=== PATIENT | male | born 1955 | race Caucasian/White ===

== ENCOUNTER → 2016-09-27 | Outpatient (CLI) | payer BC ==
--- NOTE | 2016-09-27 14:11 | REP ---
CAROTID ULTRASOUND: Real-time ultrasound evaluation and duplex Doppler interrogation of the extracranial carotid vasculature is performed. There is mild plaquing and narrowing in both carotid bulbs extending into the internal and external carotid arteries. Luminal narrowing is less than 50%. There is no evidence of hemodynamically significant stenosis of either internal carotid artery. Normal flow velocities are seen. The vertebral arteries demonstrate normal direction of flow. RIGHT LEFT Peak systolic velocity ICA 43.8 cm/s 68.3 cm/s End diastolic velocity ICA 16.7 cm/s 27.5 cm/s Peak systolic velocity CCA 97.1 cm/s 109.5 cm/s Peak systolic velocity ECA 85.1 cm/s 130.8 cm/s ICA/CCA ratio 0.45 0.63 IMPRESSION: Bilateral luminal narrowing of the internal carotid arteries less than 50%. No evidence of hemodynamically significant stenosis. Signed by Matthew Mohan MD 09/27/2016 02:03 P
== END ==
LOC: M RAD 13:09
PROVIDERS: ATTEND Physician Assistant
DX: R09.89 Other specified symptoms and signs involving the circulatory and respiratory systems (principal)

== ENCOUNTER → 2018-01-30 | Outpatient (CLI) | payer BC ==
[2018-01-30 11:12] LABS: HEMATOCRIT 44.4 % (42.0-52.0); HEMOGLOBIN 14.9 g/dl (13.5-17.5); MEAN CORPUSCULAR HEMOGLOBIN 30.3 pg (27.0-33.0); MEAN CORPUSCULAR HGB CONC 33.6 g/dl (32.0-36.5); MEAN CORPUSCULAR VOLUME 90.4 fl (80.0-96.0); PLATELET COUNT, AUTOMATED 188 10^3/uL (150-450); RED BLOOD COUNT 4.91 10^6/uL (4.30-6.10); RED CELL DISTRIBUTION WIDTH 13.2 % (11.5-14.5); WHITE BLOOD COUNT 6.6 10^3/uL (4.0-10.0)
[2018-01-30 11:26] LABS: INR 1.01; PROTHROMBIN TIME 13.4 SECONDS (12.1-14.4)
[2018-01-30 11:34] LABS: ALBUMIN 3.8 GM/DL (3.2-5.2); ALBUMIN/GLOBULIN RATIO 1.31 (1.00-1.93); ALKALINE PHOSPHATASE 88 U/L (45-117); ALT/SGPT 34 U/L (12-78); ANION GAP 8 MEQ/L (8-16); AST/SGOT 21 U/L (7-37); BILIRUBIN,TOTAL 0.5 MG/DL (0.2-1.0); BLOOD UREA NITROGEN 13 MG/DL (7-18); CALCIUM LEVEL 8.6 MG/DL (8.8-10.2); CARBON DIOXIDE LEVEL 29 MEQ/L (21-32); CHLORIDE LEVEL 104 MEQ/L (98-107); CREATININE FOR GFR 0.66 MG/DL (0.70-1.30); GLOMERULAR FILTRATION RATE > 60.0 (>49); GLUCOSE, FASTING 202 MG/DL (70-100); POTASSIUM SERUM 4.8 MEQ/L (3.5-5.1); SODIUM LEVEL 141 MEQ/L (136-145); TOTAL PROTEIN 6.7 GM/DL (6.4-8.2)
[2018-01-30 11:37] LABS: ERYTHROCYTE SEDIMENTATION RATE 3 mm/hr (0-20)
== END ==
LOC: M ADMPAT 10:17
DX: M17.12 Unilateral primary osteoarthritis, left knee (principal)
CPT/HCPCS: 71046

== ENCOUNTER 2018-02-20 06:45 | Inpatient (IN) | payer BC ==
[2018-02-20] MEDS ORDERED: LIDOCAINE 1% MDV 20ML VIAL SQ (07:00)
[2018-02-20 07:18] LABS: GLUCOSE, FASTING 227 MG/DL (70-100)
[2018-02-20] MEDS ORDERED: LIDOCAINE 2% INJ 100 MG/5 ML SDV (FOR ANES.) As Ordered (07:19)
[2018-02-20] MEDS ORDERED: PROPOFOL 200 MG/20 ML VIAL As Ordered ×3 (07:19→10:33)
[2018-02-20] MEDS: ACETAMINOPHEN 500 MG TAB PO (07:30)
[2018-02-20] MEDS: LR 1,000 ML IV ×3 (07:30→11:30)
[2018-02-20] MEDS ORDERED: HumaLOG INSULIN (NovoLOG) PER UNIT As Ordered (07:51)
[2018-02-20] MEDS: HumaLOG INSULIN (NovoLOG) PER UNIT SC ×3 (08:00→21:09)
[2018-02-20] MEDS ORDERED: MIDAZOLAM INJ 2 MG/2 ML VIAL (J2250) As Ordered (08:20)
[2018-02-20] MEDS ORDERED: fentaNYL 100 MCG/2 ML INJECTION (J3010) As Ordered (08:20)
[2018-02-20] MEDS: fentaNYL 100 MCG/2 ML INJECTION (J3010) IV ×4 (08:33→08:50)
[2018-02-20] MEDS: MIDAZOLAM INJ 2 MG/2 ML VIAL (J2250) IV ×2 (08:34→08:50)
[2018-02-20] MEDS ORDERED: dexameTHASONE 10 MG/1 ML VIAL PRES.FREE (J1100) (09:36)
[2018-02-20] MEDS ORDERED: ROPIvacaine 0.5% 30 ML INJECTION (J2795 PER 1MG) (09:36)
[2018-02-20] MEDS ORDERED: LIDOCAINE 1% MDV 20ML VIAL (09:36)
[2018-02-20] MEDS: EPINEPHrine INJ 1 MG/ML 1ML AMP As Ordered (09:41)
[2018-02-20] MEDS: BUPIVACAINE HCL 0.25% 10 ML VIAL As Ordered (09:41)
[2018-02-20] MEDS: TRANEXAMIC ACID 100 MG/ML 10ML VIAL As Ordered (09:41)
[2018-02-20] MEDS: BUPIVACAINE LIPOSOME/PF 1.3% 20 ML VIAL (13.3MG/ML)(EXPAREL) As Ordered (09:41)
[2018-02-20] MEDS: ceFAZolin 1GM INJ (J0690 PER 500MG) As Ordered (09:42)
[2018-02-20] MEDS ORDERED: MORPHINE 1MG/ML IN 0.9% NACL 100ML IV BAG As Ordered (11:23)
[2018-02-20] MEDS ORDERED: NALOXONE INJ 0.4 MG/1 ML VIAL (J2310) IV (11:30)
[2018-02-20] MEDS ORDERED: FLEET ENEMA PR (11:30)
[2018-02-20] MEDS ORDERED: MORPHINE 1MG/ML IN 0.9% NACL 100ML IV BAG IV (11:30)
[2018-02-20] MEDS ORDERED: ACETAMINOPHEN TAB 650MG DOSE (2X325MG) PO (11:30)
[2018-02-20] MEDS ORDERED: MORPHINE 10 MG/ML 1ML VIAL (J2270) IV (11:30)
[2018-02-20] MEDS ORDERED: ONDANSETRON 4MG/2ML VIAL (J2405) IV ×2 (11:30)
[2018-02-20] MEDS ORDERED: EPIDURAL/PCA KEYS XX (11:30)
[2018-02-20] MEDS ORDERED: NALBUPHINE HCL 10 MG/ML AMP (J2300) IV (11:30)
[2018-02-20] MEDS ORDERED: diphenhydrAMINE INJ 50MG/ML VIAL (J1200) IV (11:30)
[2018-02-20] MEDS ORDERED: fentaNYL 100 MCG/2 ML INJECTION (J3010) IV (11:30)
[2018-02-20] MEDS ORDERED: GLUCOSE 4 GM CHEW TABLET PO (18:00)
[2018-02-20] MEDS ORDERED: GLUCAGON FOR INJ 1 MG VIAL (J1610) SC (18:00)
[2018-02-20] MEDS ORDERED: DEXTROSE 50% 50 ML SYRINGE IV (18:00)
[2018-02-20 21:09] LABS: BEDSIDE GLUCOSE 361 MG/DL (80-115)
[2018-02-20 21:09] LABS: BEDSIDE GLUCOSE 304 MG/DL (80-115)
[2018-02-20] MEDS: FAMOTIDINE 20 MG TAB PO (21:09)
[2018-02-21 07:00] LABS: HEMATOCRIT 41.7 % (42.0-52.0); MEAN CORPUSCULAR HEMOGLOBIN 30.4 pg (27.0-33.0); MEAN CORPUSCULAR HGB CONC 33.6 g/dl (32.0-36.5); MEAN CORPUSCULAR VOLUME 90.5 fl (80.0-96.0); PLATELET COUNT, AUTOMATED 217 10^3/uL (150-450); RED BLOOD COUNT 4.61 10^6/uL (4.30-6.10); RED CELL DISTRIBUTION WIDTH 13.3 % (11.5-14.5); WHITE BLOOD COUNT 15.9 10^3/uL (4.0-10.0)
[2018-02-21 07:18] LABS: INR 1.05; PROTHROMBIN TIME 13.8 SECONDS (12.1-14.4)
[2018-02-21 07:27] LABS: ANION GAP 9 MEQ/L (8-16); BLOOD UREA NITROGEN 22 MG/DL (7-18); CALCIUM LEVEL 8.1 MG/DL (8.8-10.2); CARBON DIOXIDE LEVEL 26 MEQ/L (21-32); CHLORIDE LEVEL 105 MEQ/L (98-107); GLOMERULAR FILTRATION RATE > 60.0 (>49); GLUCOSE, FASTING 205 MG/DL (70-100); POTASSIUM SERUM 4.3 MEQ/L (3.5-5.1); SODIUM LEVEL 140 MEQ/L (136-145)
[2018-02-21] MEDS ORDERED: ONDANSETRON 4 MG TAB (S0181) PO (08:00)
[2018-02-21] MEDS ORDERED: PERCOCET 5MG/325MG TAB PO (08:00)
[2018-02-21] MEDS: MIRALAX *UNIT DOSE* 17GM PACKET PO (08:39)
[2018-02-21] MEDS: ROSUVASTATIN 10 MG TAB (CRESTOR) PO (08:39)
[2018-02-21] MEDS: HumaLOG INSULIN (NovoLOG) PER UNIT SC ×2 (08:39→12:46)
[2018-02-21] MEDS: SENOKOT S TAB PO (08:39)
[2018-02-21] MEDS: MOM 30ML SUSPENSION UDC PO (08:39)
[2018-02-21] MEDS: RAMIPRIL 5 MG CAP PO (08:40)
[2018-02-21] MEDS: FAMOTIDINE 20 MG TAB PO (08:40)
[2018-02-21] MEDS: PERCOCET 5MG/325MG TAB PO ×3 (08:41→17:21)
[2018-02-22 03:28] LABS: BEDSIDE GLUCOSE 268 MG/DL (80-115)
[2018-02-22] MEDS ORDERED: CLOPIDOGREL 75 MG TAB PO (09:00)
[2018-02-22] MEDS ORDERED: ASPIRIN 81 MG ENTERIC TAB PO (09:00)
== END 2018-02-21 17:34 | disposition home or self-care (01) | DRG 302 ==
LOC: M OR 06:45 → M MS5PR 12:50
PROVIDERS: Orthopaedic Surgery
PROC: 0SRD0J9 Replacement of Left Knee Joint with Synthetic Substitute, Cemented, Open Approach (ICD-10-PCS; principal; 2018-02-20 08:53)
DX: M17.12 Unilateral primary osteoarthritis, left knee (principal); I10 Essential (primary) hypertension; E66.9 Obesity, unspecified; Z68.36 Body mass index [BMI] 36.0-36.9, adult; E11.9 Type 2 diabetes mellitus without complications; I25.10 Atherosclerotic heart disease of native coronary artery without angina pectoris; E78.5 Hyperlipidemia, unspecified; M81.0 Age-related osteoporosis without current pathological fracture; K21.9 Gastro-esophageal reflux disease without esophagitis; E78.00 Pure hypercholesterolemia, unspecified; Z88.8 Allergy status to other drugs, medicaments and biological substances; Z79.84 Long term (current) use of oral hypoglycemic drugs; Z79.82 Long term (current) use of aspirin; Z79.02 Long term (current) use of antithrombotics/antiplatelets; Z95.9 Presence of cardiac and vascular implant and graft, unspecified; Z87.891 Personal history of nicotine dependence; Z79.899 Other long term (current) drug therapy

== ENCOUNTER 2018-02-23 12:50 | Inpatient (IN) | payer BC ==
[2018-02-23 13:48] LABS: APPEARANCE, URINE CLEAR (CLEAR); BACTERIA, URINE AUTO NEGATIVE (NEGATIVE); BILIRUBIN, URINE AUTO NEGATIVE (NEGATIVE); BLOOD, URINE BLOOD 2+ (NEGATIVE); COLOR, URINE YELLOW (YELLOW); GLUCOSE, URINE (UA) AUTO 3+ mg/dL (NEGATIVE); KETONE, URINE AUTO 2+ mg/dL (NEGATIVE); LEUKOCYTE ESTERASE, URINE AUTO NEGATIVE (NEGATIVE); MUCUS, URINE SMALL (NEGATIVE); NITRITE, URINE AUTO NEGATIVE (NEGATIVE); PROTEIN, URINE AUTO 1+ mg/dL (NEGATIVE); RBC, URINE AUTO 10 /HPF (0-3); SPECIFIC GRAVITY URINE AUTO 1.022 (1.002-1.035); SQUAMOUS EPITHELIAL CELL UR AU 0 /HPF (0-6); UROBILINOGEN, URINE AUTO 0.2 mg/dL (0.0-2.0); WBC, URINE AUTO 1 /HPF (0-3)
[2018-02-23 15:49] LABS: BASO # 0.1 10^3/uL (0.0-0.2); BASO % 0.3 % (0.0-1.0); HEMATOCRIT 46.9 % (42.0-52.0); IMMATURE GRANULOCYTE % 1.7 % (0-3.0); LYMPH # 1.9 10^3/uL (1.5-4.5); MEAN CORPUSCULAR HEMOGLOBIN 30.1 pg (27.0-33.0); MEAN CORPUSCULAR VOLUME 94.2 fl (80.0-96.0); MONO # 1.2 10^3/uL (0.0-0.8); MONO % 7.2 % (0.0-5.0); NEUTROPHILS # 12.7 10^3/uL (1.8-7.7); NEUTROPHILS % 78.8 % (36.0-66.0); PLATELET COUNT, AUTOMATED 261 10^3/uL (150-450); RED BLOOD COUNT 4.98 10^6/uL (4.30-6.10); RED CELL DISTRIBUTION WIDTH 13.5 % (11.5-14.5); WHITE BLOOD COUNT 16.1 10^3/uL (4.0-10.0)
[2018-02-23] MEDS: NS 1,000 ML IV ×3 (15:50→22:29)
[2018-02-23 16:06] LABS: ERYTHROCYTE SEDIMENTATION RATE 4 mm/hr (0-20)
[2018-02-23 16:14] LABS: ALBUMIN 3.5 GM/DL (3.2-5.2); ALBUMIN/GLOBULIN RATIO 0.85 (1.00-1.93); ALKALINE PHOSPHATASE 76 U/L (45-117); ALT/SGPT 28 U/L (12-78); AMYLASE 18 U/L (25-115); ANION GAP 22 MEQ/L (8-16); AST/SGOT 17 U/L (7-37); BILIRUBIN,DIRECT 0.2 MG/DL (0.0-0.2); BILIRUBIN,TOTAL 0.8 MG/DL (0.2-1.0); BLOOD UREA NITROGEN 19 MG/DL (7-18); CALCIUM LEVEL 8.5 MG/DL (8.8-10.2); CARBON DIOXIDE LEVEL 9 MEQ/L (21-32); CHLORIDE LEVEL 104 MEQ/L (98-107); CPK CREATINE PHOSPHOKINASE 159 U/L (39-308); CREATININE FOR GFR 0.83 MG/DL (0.70-1.30); GLOMERULAR FILTRATION RATE > 60.0 (>49); GLUCOSE, FASTING 180 MG/DL (70-100); LIPASE 57 U/L (73-393); POTASSIUM SERUM 5.2 MEQ/L (3.5-5.1); SODIUM LEVEL 135 MEQ/L (136-145); TOTAL PROTEIN 7.6 GM/DL (6.4-8.2); TROPONIN I < 0.02 NG/ML (< 0.10)
[2018-02-23 16:15] LABS: CK-MB VALUE MASS 1.2 NG/ML (<3.6); MB/CK RELATIVE INDEX 0.75 (< OR =4)
[2018-02-23 16:53] LABS: BEDSIDE GLUCOSE 168 MG/DL (80-115)
[2018-02-23 17:06] LABS: VENOUS BASE EXCESS -19.9 (-2.0-2.0); VENOUS HCO3 9.2 MEQ/L (23.0-27.0); VENOUS O2 SATURATION 60.2 % (60.0-80.0); VENOUS PARTIAL PRESSURE CO2 32.2 mmHg (38.0-50.0); VENOUS PARTIAL PRESSURE O2 37.4 mmHg (30.0-50.0); VENOUS PH 7.072 UNITS (7.330-7.430); VENOUS STANDARD HCO3 9.6 MEQ/L; VENOUS TOTAL CO2 10.2 MEQ/L (24.0-28.0)
[2018-02-23 17:43] LABS: ACETONE/KETONE > 46.00 MG/DL (<2.81)
[2018-02-23 19:25] LABS: BEDSIDE GLUCOSE 172 MG/DL (80-115)
[2018-02-23] MEDS ORDERED: INSULIN HUMAN REGULAR 100 UNITS in NS 99 ML IV (19:35)
[2018-02-23] MEDS ORDERED: INSULIN IV RATE CHANGE DOCUMENTATION ML/HR XX (19:45)
[2018-02-23] MEDS ORDERED: ISOVUE-370 76% 100ML VIAL (Q9967) As Ordered (19:49)
[2018-02-23] MEDS: D5W/0.45% SODIUM CHLORIDE 1,000 ML IV (20:35)
[2018-02-23] MEDS: PIPERACILLIN/TAZOBACTAM SOD 3.375 GM in D5W MINI-BAG PLUS 50 ML IV (20:35)
[2018-02-23 20:41] LABS: ESTIMATED AVERAGE GLUCOSE 194 MG/DL (60-110); HEMOGLOBIN A1c 8.4 %
[2018-02-23 20:46] LABS: ANION GAP 16 MEQ/L (8-16); BLOOD UREA NITROGEN 18 MG/DL (7-18); CALCIUM LEVEL 7.9 MG/DL (8.8-10.2); CARBON DIOXIDE LEVEL 12 MEQ/L (21-32); CHLORIDE LEVEL 108 MEQ/L (98-107); CK-MB VALUE MASS < 1.0 NG/ML (<3.6); CPK CREATINE PHOSPHOKINASE 127 U/L (39-308); GLOMERULAR FILTRATION RATE > 60.0 (>49); GLUCOSE, FASTING 158 MG/DL (70-100); MAGNESIUM LEVEL 2.2 MG/DL (1.8-2.4); MB/CK RELATIVE INDEX 0.78 (< OR =4); PHOSPHORUS LEVEL 3.2 MG/DL (2.5-4.9); SODIUM LEVEL 136 MEQ/L (136-145); TROPONIN I < 0.02 NG/ML (< 0.10)
[2018-02-23] MEDS: NYSTATIN CREAM 15 GM TOP (21:00)
[2018-02-23 21:02] LABS: ACETONE/KETONE > 46.00 MG/DL (<2.81); POTASSIUM SERUM 5.4 MEQ/L (3.5-5.1)
[2018-02-23 21:12] LABS: BEDSIDE GLUCOSE 190 MG/DL (80-115)
[2018-02-23] MEDS: ROSUVASTATIN 10 MG TAB (CRESTOR) PO (21:17)
[2018-02-23] MEDS: FAMOTIDINE 20 MG TAB PO (21:17)
[2018-02-23] MEDS: VANCOMYCIN HCL 1,000 MG, VIAL MATE ADAPTER 1 EACH in D5W 250 ML IV ×2 (21:19→22:15)
[2018-02-23 22:13] LABS: BEDSIDE GLUCOSE 226 MG/DL (80-115)
[2018-02-23] MEDS: RAMIPRIL 5 MG CAP PO (23:00)
[2018-02-23] MEDS: PERCOCET 5MG/325MG TAB PO (23:00)
[2018-02-23 23:48] LABS: BEDSIDE GLUCOSE 233 MG/DL (80-115)
[2018-02-23] MEDS: HumaLOG INSULIN (NovoLOG) PER UNIT SC (23:49)
[2018-02-23 23:56] LABS: ANION GAP 20 MEQ/L (8-16); BLOOD UREA NITROGEN 17 MG/DL (7-18); CALCIUM LEVEL 8.1 MG/DL (8.8-10.2); CARBON DIOXIDE LEVEL 7 MEQ/L (21-32); CHLORIDE LEVEL 107 MEQ/L (98-107); CREATININE FOR GFR 0.82 MG/DL (0.70-1.30); GLOMERULAR FILTRATION RATE > 60.0 (>49); GLUCOSE, FASTING 221 MG/DL (70-100); MAGNESIUM LEVEL 2.2 MG/DL (1.8-2.4); POTASSIUM SERUM 4.4 MEQ/L (3.5-5.1); SODIUM LEVEL 134 MEQ/L (136-145)
[2018-02-24 00:10] LABS: ACETONE/KETONE > 46.00 MG/DL (<2.81)
[2018-02-24 01:53] LABS: BEDSIDE GLUCOSE 67 MG/DL (80-115)
[2018-02-24 01:55] LABS: BEDSIDE GLUCOSE 177 MG/DL (80-115)
[2018-02-24] MEDS: PIPERACILLIN/TAZOBACTAM SOD 3.375 GM in D5W MINI-BAG PLUS 50 ML IV ×4 (02:55→21:14)
[2018-02-24 03:27] LABS: HEMATOCRIT 41.4 % (42.0-52.0); HEMOGLOBIN 13.6 g/dl (13.5-17.5); MEAN CORPUSCULAR HEMOGLOBIN 30.3 pg (27.0-33.0); MEAN CORPUSCULAR HGB CONC 32.9 g/dl (32.0-36.5); MEAN CORPUSCULAR VOLUME 92.2 fl (80.0-96.0); PLATELET COUNT, AUTOMATED 245 10^3/uL (150-450); RED BLOOD COUNT 4.49 10^6/uL (4.30-6.10); RED CELL DISTRIBUTION WIDTH 13.5 % (11.5-14.5); WHITE BLOOD COUNT 13.2 10^3/uL (4.0-10.0)
[2018-02-24 03:48] LABS: BEDSIDE GLUCOSE 180 MG/DL (80-115)
[2018-02-24 04:09] LABS: ALBUMIN 2.8 GM/DL (3.2-5.2); ALBUMIN/GLOBULIN RATIO 0.65 (1.00-1.93); ALKALINE PHOSPHATASE 57 U/L (45-117); ALT/SGPT 19 U/L (12-78); ANION GAP 16 MEQ/L (8-16); AST/SGOT 11 U/L (7-37); BILIRUBIN,TOTAL 0.7 MG/DL (0.2-1.0); BLOOD UREA NITROGEN 18 MG/DL (7-18); CALCIUM LEVEL 7.9 MG/DL (8.8-10.2); CARBON DIOXIDE LEVEL 10 MEQ/L (21-32); CHLORIDE LEVEL 110 MEQ/L (98-107); CK-MB VALUE MASS 1.3 NG/ML (<3.6); CPK CREATINE PHOSPHOKINASE 91 U/L (39-308); CREATININE FOR GFR 0.78 MG/DL (0.70-1.30); GLOMERULAR FILTRATION RATE > 60.0 (>49); GLUCOSE, FASTING 168 MG/DL (70-100); MAGNESIUM LEVEL 2.3 MG/DL (1.8-2.4); MB/CK RELATIVE INDEX 1.42 (< OR =4); PHOSPHORUS LEVEL 2.6 MG/DL (2.5-4.9); POTASSIUM SERUM 4.2 MEQ/L (3.5-5.1); SODIUM LEVEL 136 MEQ/L (136-145); TOTAL PROTEIN 7.1 GM/DL (6.4-8.2); TROPONIN I < 0.02 NG/ML (< 0.10)
[2018-02-24 04:25] LABS: ACETONE/KETONE 39.66 MG/DL (<2.81)
[2018-02-24] MEDS: VANCOMYCIN HCL 1,000 MG, VIAL MATE ADAPTER 1 EACH in D5W 250 ML IV ×3 (05:27→22:28)
[2018-02-24 05:54] LABS: BEDSIDE GLUCOSE 188 MG/DL (80-115)
[2018-02-24] MEDS: HumaLOG INSULIN (NovoLOG) PER UNIT SC ×4 (05:54→21:00)
[2018-02-24] MEDS: NS 1,000 ML IV (07:45)
[2018-02-24 08:14] LABS: ACETONE/KETONE 29.69 MG/DL (<2.81); ANION GAP 13 MEQ/L (8-16); BLOOD UREA NITROGEN 21 MG/DL (7-18); CALCIUM LEVEL 8.1 MG/DL (8.8-10.2); CARBON DIOXIDE LEVEL 14 MEQ/L (21-32); CHLORIDE LEVEL 110 MEQ/L (98-107); CREATININE FOR GFR 0.68 MG/DL (0.70-1.30); GLOMERULAR FILTRATION RATE > 60.0 (>49); GLUCOSE, FASTING 161 MG/DL (70-100); POTASSIUM SERUM 4.1 MEQ/L (3.5-5.1); SODIUM LEVEL 137 MEQ/L (136-145)
[2018-02-24] MEDS: NYSTATIN CREAM 15 GM TOP ×2 (09:00→21:31)
[2018-02-24] MEDS: HEPARIN SOD (PORCINE) 5000 UNITS/ML VIAL SC ×2 (09:00→21:14)
[2018-02-24] MEDS: FAMOTIDINE 20 MG TAB PO ×2 (09:01→21:14)
[2018-02-24] MEDS: LEVEMIR (INSULIN DETEMIR) 1 UNITS/0.01ML SC (09:01)
[2018-02-24] MEDS: ASPIRIN 81 MG ENTERIC TAB PO (09:01)
[2018-02-24] MEDS: MULTIVITAMINS/MINERALS THERAP 1 TAB PO (09:01)
[2018-02-24] MEDS: RAMIPRIL 5 MG CAP PO (09:01)
[2018-02-24] MEDS ORDERED: GLUCOSE 4 GM CHEW TABLET PO (09:30)
[2018-02-24] MEDS ORDERED: DEXTROSE 50% 50 ML SYRINGE IV (09:30)
[2018-02-24] MEDS ORDERED: GLUCAGON FOR INJ 1 MG VIAL (J1610) SC (09:30)
[2018-02-24] MEDS: SENNA 8.6 MG TAB (SENOKOT) PO ×2 (10:08→21:14)
[2018-02-24] MEDS: ONDANSETRON 4MG/2ML VIAL (J2405) IV ×3 (10:09→21:14)
[2018-02-24 11:55] LABS: BEDSIDE GLUCOSE 180 MG/DL (80-115)
[2018-02-24] MEDS: CLOPIDOGREL 75 MG TAB PO (11:56)
[2018-02-24] MEDS: MAGNESIUM CITRATE 300 ML BTL PO ×2 (13:13→16:15)
[2018-02-24 16:39] LABS: BEDSIDE GLUCOSE 161 MG/DL (80-115)
[2018-02-24 21:14] LABS: BEDSIDE GLUCOSE 179 MG/DL (80-115)
[2018-02-24] MEDS: ROSUVASTATIN 10 MG TAB (CRESTOR) PO (21:14)
[2018-02-24 21:42] LABS: VANCOMYCIN LEVEL TROUGH 5.1 UG/ML (10.0-20.0)
[2018-02-25] MEDS: VANCOMYCIN HCL 1,000 MG, VIAL MATE ADAPTER 1 EACH in D5W 250 ML IV ×2 (00:21→05:33)
[2018-02-25] MEDS: PIPERACILLIN/TAZOBACTAM SOD 3.375 GM in D5W MINI-BAG PLUS 50 ML IV (02:43)
[2018-02-25] MEDS: ONDANSETRON 4MG/2ML VIAL (J2405) IV ×4 (05:02→21:14)
[2018-02-25 05:21] LABS: HEMATOCRIT 37.3 % (42.0-52.0); HEMOGLOBIN 12.7 g/dl (13.5-17.5); MEAN CORPUSCULAR HEMOGLOBIN 30.3 pg (27.0-33.0); PLATELET COUNT, AUTOMATED 224 10^3/uL (150-450); RED BLOOD COUNT 4.19 10^6/uL (4.30-6.10); RED CELL DISTRIBUTION WIDTH 13.5 % (11.5-14.5); WHITE BLOOD COUNT 7.7 10^3/uL (4.0-10.0)
[2018-02-25 05:40] LABS: ALBUMIN 2.6 GM/DL (3.2-5.2); ALBUMIN/GLOBULIN RATIO 0.65 (1.00-1.93); ALKALINE PHOSPHATASE 56 U/L (45-117); ALT/SGPT 17 U/L (12-78); ANION GAP 15 MEQ/L (8-16); AST/SGOT 9 U/L (7-37); BILIRUBIN,TOTAL 0.9 MG/DL (0.2-1.0); BLOOD UREA NITROGEN 17 MG/DL (7-18); C REACTIVE PROTEIN QUANTITATIV 9.15 MG/DL (0.00-0.30); CALCIUM LEVEL 7.8 MG/DL (8.8-10.2); CARBON DIOXIDE LEVEL 17 MEQ/L (21-32); CHLORIDE LEVEL 106 MEQ/L (98-107); GLOMERULAR FILTRATION RATE > 60.0 (>49); GLUCOSE, FASTING 151 MG/DL (70-100); MAGNESIUM LEVEL 2.2 MG/DL (1.8-2.4); POTASSIUM SERUM 3.5 MEQ/L (3.5-5.1); SODIUM LEVEL 138 MEQ/L (136-145); TOTAL PROTEIN 6.6 GM/DL (6.4-8.2)
[2018-02-25] MEDS: LEVEMIR (INSULIN DETEMIR) 1 UNITS/0.01ML SC (09:15)
[2018-02-25] MEDS: HumaLOG INSULIN (NovoLOG) PER UNIT SC ×4 (09:15→21:15)
[2018-02-25] MEDS: HEPARIN SOD (PORCINE) 5000 UNITS/ML VIAL SC ×2 (09:15→21:14)
[2018-02-25] MEDS: SENNA 8.6 MG TAB (SENOKOT) PO ×2 (09:16→21:13)
[2018-02-25] MEDS: ASPIRIN 81 MG ENTERIC TAB PO (09:16)
[2018-02-25] MEDS: MULTIVITAMINS/MINERALS THERAP 1 TAB PO (09:16)
[2018-02-25] MEDS: FAMOTIDINE 20 MG TAB PO ×2 (09:16→21:13)
[2018-02-25] MEDS: RAMIPRIL 5 MG CAP PO (09:16)
[2018-02-25] MEDS: NYSTATIN CREAM 15 GM TOP ×2 (09:17→21:14)
[2018-02-25 11:41] LABS: BEDSIDE GLUCOSE 147 MG/DL (80-115)
[2018-02-25 11:54] LABS: PHOSPHORUS LEVEL 1.5 MG/DL (2.5-4.9)
[2018-02-25] MEDS: CLOPIDOGREL 75 MG TAB PO (12:30)
[2018-02-25 16:49] LABS: BEDSIDE GLUCOSE 190 MG/DL (80-115)
[2018-02-25] MEDS: K-PHOS NEUTRAL 250MG TABLET (SOD.PHOSPHATE/POT.PHOSPHATE) PO ×2 (17:16→21:13)
[2018-02-25 20:32] LABS: BEDSIDE GLUCOSE 175 MG/DL (80-115)
[2018-02-25] MEDS: ROSUVASTATIN 10 MG TAB (CRESTOR) PO (21:13)
[2018-02-26] MEDS: ONDANSETRON 4MG/2ML VIAL (J2405) IV ×2 (04:59→09:02)
[2018-02-26 06:03] LABS: HEMATOCRIT 36.3 % (42.0-52.0); HEMOGLOBIN 12.6 g/dl (13.5-17.5); MEAN CORPUSCULAR HEMOGLOBIN 30.4 pg (27.0-33.0); MEAN CORPUSCULAR HGB CONC 34.7 g/dl (32.0-36.5); MEAN CORPUSCULAR VOLUME 87.7 fl (80.0-96.0); PLATELET COUNT, AUTOMATED 235 10^3/uL (150-450); RED BLOOD COUNT 4.14 10^6/uL (4.30-6.10); RED CELL DISTRIBUTION WIDTH 13.6 % (11.5-14.5); WHITE BLOOD COUNT 7.3 10^3/uL (4.0-10.0)
[2018-02-26 06:25] LABS: ALBUMIN 2.5 GM/DL (3.2-5.2); ALBUMIN/GLOBULIN RATIO 0.63 (1.00-1.93); ALKALINE PHOSPHATASE 57 U/L (45-117); ALT/SGPT 17 U/L (12-78); ANION GAP 14 MEQ/L (8-16); AST/SGOT 12 U/L (7-37); BILIRUBIN,TOTAL 0.7 MG/DL (0.2-1.0); BLOOD UREA NITROGEN 16 MG/DL (7-18); C REACTIVE PROTEIN QUANTITATIV 5.39 MG/DL (0.00-0.30); CALCIUM LEVEL 7.7 MG/DL (8.8-10.2); CARBON DIOXIDE LEVEL 22 MEQ/L (21-32); CHLORIDE LEVEL 103 MEQ/L (98-107); CREATININE FOR GFR 0.44 MG/DL (0.70-1.30); GLOMERULAR FILTRATION RATE > 60.0 (>49); GLUCOSE, FASTING 163 MG/DL (70-100); MAGNESIUM LEVEL 2.2 MG/DL (1.8-2.4); POTASSIUM SERUM 3.2 MEQ/L (3.5-5.1); SODIUM LEVEL 139 MEQ/L (136-145); TOTAL PROTEIN 6.5 GM/DL (6.4-8.2)
[2018-02-26] MEDS: HumaLOG INSULIN (NovoLOG) PER UNIT SC (08:59)
[2018-02-26] MEDS: POTASSIUM CHLORIDE 10 MEQ SR TABLET PO (09:00)
[2018-02-26] MEDS: HEPARIN SOD (PORCINE) 5000 UNITS/ML VIAL SC (09:00)
[2018-02-26] MEDS: LEVEMIR (INSULIN DETEMIR) 1 UNITS/0.01ML SC (09:02)
[2018-02-26] MEDS: K-PHOS NEUTRAL 250MG TABLET (SOD.PHOSPHATE/POT.PHOSPHATE) PO ×2 (09:02→10:41)
[2018-02-26] MEDS: NYSTATIN CREAM 15 GM TOP (09:03)
[2018-02-26] MEDS: ASPIRIN 81 MG ENTERIC TAB PO (09:03)
[2018-02-26] MEDS: SENNA 8.6 MG TAB (SENOKOT) PO (09:03)
[2018-02-26] MEDS: MULTIVITAMINS/MINERALS THERAP 1 TAB PO (09:03)
[2018-02-26] MEDS: FAMOTIDINE 20 MG TAB PO (09:03)
[2018-02-26] MEDS: RAMIPRIL 5 MG CAP PO (09:03)
[2018-02-26 10:49] LABS: BEDSIDE GLUCOSE 166 MG/DL (80-115)
== END 2018-02-26 10:45 | disposition home or self-care (01) | DRG 420 ==
LOC: M MSPAV 02-24 16:00 → M ED 12:50 → M ED INP 19:35 → M ICU 20:59
DX: E11.10 Type 2 diabetes mellitus with ketoacidosis without coma (principal); I10 Essential (primary) hypertension; I25.10 Atherosclerotic heart disease of native coronary artery without angina pectoris; E78.5 Hyperlipidemia, unspecified; K21.9 Gastro-esophageal reflux disease without esophagitis; I35.8 Other nonrheumatic aortic valve disorders; M81.0 Age-related osteoporosis without current pathological fracture; E66.9 Obesity, unspecified; Z88.8 Allergy status to other drugs, medicaments and biological substances; Z96.652 Presence of left artificial knee joint; Z87.891 Personal history of nicotine dependence; Z79.82 Long term (current) use of aspirin; Z79.899 Other long term (current) drug therapy; Z79.02 Long term (current) use of antithrombotics/antiplatelets; Z79.84 Long term (current) use of oral hypoglycemic drugs; Z95.5 Presence of coronary angioplasty implant and graft; T50.3X5A Adverse effect of electrolytic, caloric and water-balance agents, initial encounter; Z68.35 Body mass index [BMI] 35.0-35.9, adult

== ENCOUNTER → 2019-04-05 | Outpatient (CLI) | payer BC ==
[~2019-04-05] MED LIST: ASPI81TA21 PO; CLOP75TA2 PO; CRES10TA PO; GING500C2 PO; INVO300T PO; JANU100T PO; METF-791 PO; MULT1TAB10 PO; NYST10CR TOP; NYST50SS PO; OXYC1TAB23 PO; PERC5TAB12 PO; PHOS1TAB3 PO; RAMI1CAP24 PO; RANI15TA PO; ROSU20TA5 PO; TRAM50TA2 PO; TURM450C PO
[2019-04-05 14:40] LABS: HEMATOCRIT 42.9 % (42.0-52.0); HEMOGLOBIN 14.7 g/dl (13.5-17.5); MEAN CORPUSCULAR HEMOGLOBIN 31.9 pg (27.0-33.0); MEAN CORPUSCULAR HGB CONC 34.3 g/dl (32.0-36.5); MEAN CORPUSCULAR VOLUME 93.1 fl (80.0-96.0); PLATELET COUNT, AUTOMATED 208 10^3/uL (150-450); RED BLOOD COUNT 4.61 10^6/uL (4.30-6.10); WHITE BLOOD COUNT 7.1 10^3/uL (4.0-10.0)
[2019-04-05 15:13] LABS: BLOOD UREA NITROGEN 11 MG/DL (7-18); CALCIUM LEVEL 9.1 MG/DL (8.8-10.2); CARBON DIOXIDE LEVEL 29 MEQ/L (21-32); CHLORIDE LEVEL 103 MEQ/L (98-107); CREATININE FOR GFR 0.76 MG/DL (0.70-1.30); GLOMERULAR FILTRATION RATE > 60.0 (>49); GLUCOSE, FASTING 228 MG/DL (70-100); POTASSIUM SERUM 4.3 MEQ/L (3.5-5.1); SODIUM LEVEL 139 MEQ/L (136-145)
== END ==
LOC: M LAB 14:12
PROVIDERS: ATTEND Physician Assistant
DX: I25.10 Atherosclerotic heart disease of native coronary artery without angina pectoris (principal)

== ENCOUNTER → 2019-07-31 | Outpatient (CLI) | payer BC ==
[2019-07-31 08:32] LABS: HEMATOCRIT 47.7 % (42.0-52.0); HEMOGLOBIN 15.6 g/dl (13.5-17.5); MEAN CORPUSCULAR HEMOGLOBIN 29.5 pg (27.0-33.0); MEAN CORPUSCULAR HGB CONC 32.7 g/dl (32.0-36.5); MEAN CORPUSCULAR VOLUME 90.2 fl (80.0-96.0); PLATELET COUNT, AUTOMATED 224 10^3/uL (150-450); RED BLOOD COUNT 5.29 10^6/uL (4.30-6.10); WHITE BLOOD COUNT 7.3 10^3/uL (4.0-10.0)
[2019-07-31 09:06] LABS: ALBUMIN 3.8 GM/DL (3.2-5.2); ALT/SGPT 41 U/L (12-78); BILIRUBIN,TOTAL 0.5 MG/DL (0.2-1.0); BLOOD UREA NITROGEN 12 MG/DL (7-18); CALCIUM LEVEL 8.7 MG/DL (8.8-10.2); CARBON DIOXIDE LEVEL 27 MEQ/L (21-32); CHLORIDE LEVEL 101 MEQ/L (98-107); CHOLESTEROL LEVEL 135 MG/DL (<200); GLOMERULAR FILTRATION RATE > 60.0 (>49); GLUCOSE, FASTING 292 MG/DL (70-100); HDL CHOLESTEROL 30 MG/DL (>40); LDL CHOLESTEROL 49 MG/DL (<100); NON-HDL-C 105 MG/DL; POTASSIUM SERUM 4.7 MEQ/L (3.5-5.1); SODIUM LEVEL 136 MEQ/L (136-145); TOTAL PROTEIN 7.1 GM/DL (6.4-8.2); TRIGLYCERIDES LEVEL 280 MG/DL (<150)
== END ==
LOC: M LAB 08:06
PROVIDERS: ATTEND Physician Assistant
DX: I25.10 Atherosclerotic heart disease of native coronary artery without angina pectoris (principal); E78.00 Pure hypercholesterolemia, unspecified; I10 Essential (primary) hypertension

== ENCOUNTER → 2020-03-14 | Outpatient (CLI) | payer BC ==
[~2020-03-14] MED LIST changes: -METF-791 PO; +METF-838 PO
--- NOTE | 2020-04-23 08:29 | REP ---
DUPLEX CAROTID SONOGRAPHY: HISTORY: Occlusion and stenosis. FINDINGS: Antegrade flow is observed in both vertebral arteries. RIGHT CAROTID: The right carotid common artery is unremarkable except for some diffuse intimal thickening. There is mixed plaquing in the bulb and proximal ICA on two- dimensional scanning. Color flow imaging and spectral Doppler interrogation are unremarkable on the right. VELOCITY CHART RIGHT CAROTID PSV EDV CCA 112 cm/s ICA 54 cm/s 17 cm/s ECA 97 cm/s ICA/CCA ratio 0.5 (normal) IMPRESSION: Less than 50% category narrowing in the right internal carotid artery (ICA) by Doppler velocity criteria. LEFT CAROTID: The left common carotid artery shows diffuse intimal thickening. There is mixed plaquing visible in the left carotid bulb and proximal ICA on two-dimensional scanning. Color flow and spectral Doppler interrogation are unremarkable in the ICA on the left. VELOCITY CHART LEFT CAROTID PSV EDV CCA 106 cm/s ICA 63 cm/s 20 cm/s ECA 142 cm/s ICA/CCA ratio 0.60 (normal) IMPRESSION: Less than 50% category narrowing in the left ICA by Doppler velocity criteria. MTDD
== END ==
LOC: M RAD 11:00
PROVIDERS: ATTEND Physician Assistant
DX: I65.23 Occlusion and stenosis of bilateral carotid arteries (principal)

== ENCOUNTER → 2020-10-27 | Outpatient (REF) | payer BC | LOC: M WUC 10:35 | PROVIDERS: ATTEND Physician Assistant | DX: R05 Cough (principal) ==

== ENCOUNTER → 2022-02-10 | Outpatient (CLI) | payer BC ==
[~2022-02-10] MED LIST changes: +DULA3PEN; +ECOT81TA5 PO; +HUMA50IN3 SQ
== END ==
LOC: M LABSMTC 09:19
PROVIDERS: ATTEND Anesthesiology
DX: Z01.818 Encounter for other preprocedural examination (principal); Z20.828 Contact with and (suspected) exposure to other viral communicable diseases

== ENCOUNTER 2022-02-15 06:27 | Day surgery (SDC) | payer BC ==
[~2022-02-15] VITALS: Ht 177.8 cm; Wt 122.5 kg
[~2022-02-15 06:27] MED LIST changes: +NS 1,000 ML IV ONE
[2022-02-15] MEDS ORDERED: propofoL 200 MG/20 ML VIAL As Ordered ONE (06:50)
[2022-02-15] MEDS ORDERED: LIDOCAINE 2% 100MG/5ML SDV (FOR ANES.) As Ordered ONE (06:50)
[2022-02-15 08:25] VITALS: BP 142/70
== END 2022-02-15 08:28 | disposition home or self-care (01) ==
LOC: M OPP 06:27
PROVIDERS: ATTEND Internal Medicine Gastroenterology
DX: Z12.11 Encounter for screening for malignant neoplasm of colon (principal); D12.6 Benign neoplasm of colon, unspecified; K64.0 First degree hemorrhoids; K57.30 Diverticulosis of large intestine without perforation or abscess without bleeding; I10 Essential (primary) hypertension; E78.5 Hyperlipidemia, unspecified; E11.9 Type 2 diabetes mellitus without complications; M19.90 Unspecified osteoarthritis, unspecified site; Z95.5 Presence of coronary angioplasty implant and graft; Z96.652 Presence of left artificial knee joint; Z88.8 Allergy status to other drugs, medicaments and biological substances; Z79.4 Long term (current) use of insulin; Z79.82 Long term (current) use of aspirin; Z79.899 Other long term (current) drug therapy

== ENCOUNTER → 2022-05-07 | Outpatient (REF) | payer BC ==
[~2022-05-07] MED LIST changes: -NS 1,000 ML IV ONE; +NYST-13 TOP; -NYST10CR TOP
[2022-05-07 14:06] LABS: APPEARANCE, URINE MANUAL CLEAR (CLEAR); COLOR, URINE MANUAL YELLOW (YELLOW)
[2022-05-07 14:07] LABS: GLUCOSE, URINE (UA) MANUAL 4+(1000 MG/DL) mg/dL (NEGATIVE); PROTEIN, URINE MANUAL NEGATIVE (NEGATIVE); SPECIFIC GRAVITY,URINE MANUAL 1.005 (1.002-1.035)
[2022-05-07 14:08] LABS: BILIRUBIN, URINE MANUAL NEGATIVE (NEGATIVE); BLOOD URINE MANUAL POSITIVE (NEGATIVE); KETONE, URINE MANUAL 1+ mg/dL (NEGATIVE); LEUKOCYTE ESTERASE, URINE MAN NEGATIVE (NEGATIVE); NITRITE, URINE MANUAL NEGATIVE (NEGATIVE); UROBILINOGEN, URINE MANUAL NORMAL (NORMAL)
[2022-05-07 14:42] LABS: RBC, URINE 40-50 /hpf (0-3)
[2022-05-07 14:43] LABS: BACTERIA, URINE SMALL AMOUNT; HYALINE CAST, URINE NONE SEEN /lpf (0-1); SQUAMOUS EPITHELIAL CELL URINE SMALL AMOUNT /hpf (SMALL AMT)
== END ==
LOC: M SMT 12:58
PROVIDERS: ATTEND Physician Assistant
DX: R31.21 Asymptomatic microscopic hematuria (principal)

== ENCOUNTER → 2022-05-19 | Outpatient (CLI) | payer BC ==
[~2022-05-19] MED LIST changes: +ISOVUE-370 76% 100ML VIAL As Ordered ONE
== END ==
LOC: M RAD 08:52
PROVIDERS: ATTEND Physician Assistant
DX: N32.9 Bladder disorder, unspecified (principal); R31.21 Asymptomatic microscopic hematuria
CPT/HCPCS: 74178; Q9967

== ENCOUNTER → 2022-05-31 | Outpatient (CLI) | payer BC ==
[~2022-05-31] MED LIST changes: +BISO5TAB14; -ISOVUE-370 76% 100ML VIAL As Ordered ONE; +LOSA50TA5; +METF10004
[2022-05-31 14:45] LABS: HEMATOCRIT 43.9 % (42.0-52.0); HEMOGLOBIN 14.5 g/dl (13.5-17.5); MEAN CORPUSCULAR HEMOGLOBIN 30.1 pg (27.0-33.0); MEAN CORPUSCULAR VOLUME 91.3 fl (80.0-96.0); PLATELET COUNT, AUTOMATED 217 10^3/uL (150-450); RED BLOOD COUNT 4.81 10^6/uL (4.30-6.10); WHITE BLOOD COUNT 6.7 10^3/uL (4.0-10.0)
[2022-05-31 15:13] LABS: INR 0.94; PROTHROMBIN TIME 12.8 SECONDS (12.5-14.5)
[2022-05-31 15:16] LABS: BLOOD UREA NITROGEN 19 MG/DL (7-18); CARBON DIOXIDE LEVEL 27 MEQ/L (21-32); CHLORIDE LEVEL 101 MEQ/L (98-107); CREATININE FOR GFR 0.77 MG/DL (0.70-1.30); GLOMERULAR FILTRATION RATE > 60.0 (>49); GLUCOSE, FASTING 216 MG/DL (70-100); POTASSIUM SERUM 4.2 MEQ/L (3.5-5.1); SODIUM LEVEL 134 MEQ/L (136-145)
== END ==
LOC: M RAD 13:52
PROVIDERS: ATTEND Urology
DX: Z01.818 Encounter for other preprocedural examination (principal); D49.4 Neoplasm of unspecified behavior of bladder; N39.0 Urinary tract infection, site not specified; R00.1 Bradycardia, unspecified; R94.31 Abnormal electrocardiogram [ECG] [EKG]

== ENCOUNTER → 2022-06-06 | Outpatient (CLI) | payer BC | LOC: M LABSMTC 11:09 | PROVIDERS: ATTEND Anesthesiology | DX: Z01.812 Encounter for preprocedural laboratory examination (principal); Z20.822 Contact with and (suspected) exposure to COVID-19 ==

== ENCOUNTER 2022-06-09 06:01 | Day surgery (SDC) | payer BC ==
[~2022-06-09] VITALS: Ht 177.8 cm; Wt 122.5 kg
[~2022-06-09 06:01] MED LIST changes: +ceFAZolin SOD 2 GM in IV 1 EA IV ONE
[2022-06-09] MEDS ORDERED: LR 1,000 ML IV SCH (06:30)
[2022-06-09] MEDS ORDERED: LIDOCAINE 2% 100MG/5ML SDV (FOR ANES.) As Ordered ONE (07:18)
[2022-06-09] MEDS ORDERED: propofoL 200 MG/20 ML VIAL As Ordered ONE (07:18)
[2022-06-09] MEDS ORDERED: fentaNYL 100 MCG/2 ML INJECTION As Ordered ONE (07:19)
[2022-06-09] MEDS ORDERED: MIDAZOLAM INJ 2MG/2ML VIAL (J2250 PER 1MG) As Ordered ONE (07:19)
[2022-06-09] MEDS ORDERED: INSULIN LISPRO (NovoLOG) PER UNIT SC PRN (07:20)
[2022-06-09] MEDS ORDERED: ROCURONIUM BROMIDE 50 MG/5 ML VIAL As Ordered ONE ×2 (07:20→08:15)
[2022-06-09] MEDS: ceFAZolin SOD 1 GM in D5W MINI-BAG PLUS 50 ML IV ONE ×2 (07:33→07:50)
[2022-06-09] MEDS ORDERED: ONDANSETRON 4MG 2ML VIAL As Ordered ONE (07:55)
[2022-06-09] MEDS ORDERED: ACETAMINOPHEN 1000MG 100ML IV BAG As Ordered ONE (07:55)
[2022-06-09] MEDS ORDERED: METOCLOPRAMIDE INJ 10MG/2ML VIAL (J2765 PER 1) As Ordered ONE (07:55)
[2022-06-09] MEDS ORDERED: SUGAMMADEX SODIUM 500 MG/5 ML VIAL (BRIDION) As Ordered ONE (07:55)
[2022-06-09] MEDS ORDERED: ePHEDrine SULFATE 25 MG/5 ML(5MG/ML) SYRINGE As Ordered ONE (08:06)
[2022-06-09] MEDS ORDERED: ISOVUE-300 61% 50ML VIAL As Ordered ONE (08:29)
[2022-06-09] MEDS ORDERED: ONDANSETRON 4MG 2ML VIAL IV PRN (09:25)
[2022-06-09] MEDS ORDERED: INSULIN LISPRO (NovoLOG) PER UNIT SC ONE (09:25)
[2022-06-09] MEDS ORDERED: fentaNYL 100 MCG/2 ML INJECTION IV PRN (09:25)
[2022-06-09] MEDS ORDERED: OXYC1TAB23 PO (09:31)
[2022-06-09] MEDS: oxyCODONE 5MG TAB PO PRN ×2 (09:36→10:06)
[2022-06-09] MEDS ORDERED: PERCOCET 5MG/325MG TAB PO PRN (09:40)
[2022-06-09] MEDS: HYDROMORPHONE HCL 0.5 MG/ 0.5 ML SYRINGE (J1170 PER 1) IV PRN ×4 (09:41→10:13)
[2022-06-09] MEDS ORDERED: oxyBUTYnin 5 MG TAB PO PRN (10:45)
[2022-06-09] MEDS ORDERED: OXYB5TAB10 PO (10:47)
[2022-06-09 13:08] VITALS: BP 166/54
== END 2022-06-09 13:45 | disposition home or self-care (01) ==
LOC: M SDC 06:01
PROVIDERS: ATTEND Urology
DX: C67.9 Malignant neoplasm of bladder, unspecified (principal); I10 Essential (primary) hypertension; Z98.61 Coronary angioplasty status; E78.5 Hyperlipidemia, unspecified; E11.9 Type 2 diabetes mellitus without complications; Z79.02 Long term (current) use of antithrombotics/antiplatelets; Z79.4 Long term (current) use of insulin; Z79.84 Long term (current) use of oral hypoglycemic drugs; Z79.899 Other long term (current) drug therapy
CPT/HCPCS: 52240; 52332; 74420; 88305; C2617; J0131; J0690; J1170; J2250; J2405; J2765; J3010

== ENCOUNTER → 2022-06-21 | Outpatient (REF) | payer BC ==
[~2022-06-21] MED LIST changes: +OXYB5TAB10 PO; -ceFAZolin SOD 2 GM in IV 1 EA IV ONE
[2022-06-21 18:36] LABS: APPEARANCE, URINE MANUAL CLOUDY (CLEAR); COLOR, URINE MANUAL YELLOW (YELLOW); SPECIFIC GRAVITY,URINE MANUAL 1.015 (1.002-1.035)
[2022-06-21 18:37] LABS: BILIRUBIN, URINE MANUAL NEGATIVE (NEGATIVE); BLOOD URINE MANUAL POSITIVE (NEGATIVE); GLUCOSE, URINE (UA) MANUAL 1+(100 MG/DL) mg/dL (NEGATIVE); KETONE, URINE MANUAL 1+ mg/dL (NEGATIVE); LEUKOCYTE ESTERASE, URINE MAN POSITIVE (NEGATIVE); NITRITE, URINE MANUAL POSITIVE (NEGATIVE); PROTEIN, URINE MANUAL 3+ mg/dL (NEGATIVE); UROBILINOGEN, URINE MANUAL NORMAL (NORMAL)
[2022-06-21 19:13] LABS: RBC, URINE TNTC /hpf (0-3); WBC, URINE TNTC /hpf (0-3)
[2022-06-21 19:14] LABS: BACTERIA, URINE LARGE AMOUNT; HYALINE CAST, URINE NONE SEEN /lpf (0-1); SQUAMOUS EPITHELIAL CELL URINE NONE SEEN /hpf (SMALL AMT)
== END ==
LOC: M SMT 17:16
PROVIDERS: ATTEND Physician Assistant
DX: R30.0 Dysuria (principal)

== ENCOUNTER → 2022-06-23 | Outpatient (CLI) | payer BC ==
[2022-06-23 14:08] LABS: ALBUMIN 2.9 G/DL (3.2-5.2); ALT/SGPT 24 U/L (7.0-40); BILIRUBIN,TOTAL 0.4 MG/DL (0.3-1.2); BLOOD UREA NITROGEN 18 MG/DL (9-23); CALCIUM LEVEL 8.6 MG/DL (8.3-10.6); CARBON DIOXIDE LEVEL 27 MMOL/L (20-31); CHLORIDE LEVEL 98 MMOL/L (98-107); CREATININE FOR GFR 0.71 MG/DL (0.70-1.30); GLOMERULAR FILTRATION RATE > 60.0 (>49); GLUCOSE, FASTING 186 MG/DL (74-106); POTASSIUM SERUM 3.9 MMOL/L (3.5-5.1); SODIUM LEVEL 136 MMOL/L (136-145); TOTAL PROTEIN 6.6 G/DL (5.7-8.2)
== END ==
LOC: M LAB 12:52
PROVIDERS: ATTEND Family Medicine
DX: E11.65 Type 2 diabetes mellitus with hyperglycemia (principal)

== ENCOUNTER → 2022-08-05 | Outpatient (CLI) | payer BC ==
[~2022-08-05] MED LIST changes: +NYST-38 PO; -NYST50SS PO
[2022-08-05 14:11] LABS: HEMATOCRIT 43.9 % (42.0-52.0); HEMOGLOBIN 14.1 g/dl (13.5-17.5); MEAN CORPUSCULAR HEMOGLOBIN 29.4 pg (27.0-33.0); MEAN CORPUSCULAR HGB CONC 32.1 g/dl (32.0-36.5); MEAN CORPUSCULAR VOLUME 91.5 fl (80.0-96.0); PLATELET COUNT, AUTOMATED 256 10^3/uL (150-450); WHITE BLOOD COUNT 9.6 10^3/uL (4.0-10.0)
[2022-08-05 14:42] LABS: ALBUMIN 3.8 G/DL (3.2-5.2); ALKALINE PHOSPHATASE 114 U/L (46-116); ALT/SGPT 35 U/L (7.0-40); AST/SGOT 50 U/L (<34); BILIRUBIN,TOTAL 0.4 MG/DL (0.3-1.2); BLOOD UREA NITROGEN 20 MG/DL (9-23); CALCIUM LEVEL 9.9 MG/DL (8.3-10.6); CARBON DIOXIDE LEVEL 28 MMOL/L (20-31); CHLORIDE LEVEL 98 MMOL/L (98-107); CREATININE FOR GFR 0.76 MG/DL (0.70-1.30); GLOMERULAR FILTRATION RATE > 60.0 (>49); GLUCOSE, FASTING 254 MG/DL (74-106); POTASSIUM SERUM 5.4 MMOL/L (3.5-5.1); SODIUM LEVEL 135 MMOL/L (136-145); TOTAL PROTEIN 7.1 G/DL (5.7-8.2)
[2022-08-05 14:52] LABS: APPEARANCE, URINE MANUAL HAZY (CLEAR); COLOR, URINE MANUAL LT YELLOW (YELLOW)
[2022-08-05 14:53] LABS: BILIRUBIN, URINE MANUAL NEGATIVE (NEGATIVE); BLOOD URINE MANUAL POSITIVE (NEGATIVE); GLUCOSE, URINE (UA) MANUAL 3+(500 MG/DL) mg/dL (NEGATIVE); KETONE, URINE MANUAL NEGATIVE (NEGATIVE); LEUKOCYTE ESTERASE, URINE MAN POSITIVE (NEGATIVE); NITRITE, URINE MANUAL NEGATIVE (NEGATIVE); PH,URINE MAN 5.5 UNITS (5.0 - 7.0); PROTEIN, URINE MANUAL 1+ mg/dL (NEGATIVE); SPECIFIC GRAVITY,URINE MANUAL 1.025 (1.002-1.035); UROBILINOGEN, URINE MANUAL NORMAL (NORMAL)
[2022-08-05 15:19] LABS: RBC, URINE 20-30 /hpf (0-3); SQUAMOUS EPITHELIAL CELL URINE SMALL AMOUNT /hpf (SMALL AMT); WBC, URINE TNTC /hpf (0-3)
[2022-08-05 15:20] LABS: AMORPHOUS SEDIMENT, URINE SMALL AMOUNT (NEGATIVE); BACTERIA, URINE SMALL AMOUNT; HYALINE CAST, URINE NONE SEEN /lpf (0-1)
== END ==
LOC: M PLALAB 10:00
PROVIDERS: ATTEND Urology
DX: C67.9 Malignant neoplasm of bladder, unspecified (principal)

== ENCOUNTER → 2022-08-17 | Outpatient (CLI) | payer BC ==
[2022-08-17 11:02] LABS: APPEARANCE, URINE MANUAL HAZY (CLEAR); BILIRUBIN, URINE MANUAL NEGATIVE (NEGATIVE); COLOR, URINE MANUAL YELLOW (YELLOW); GLUCOSE, URINE (UA) MANUAL 4+(1000 MG/DL) mg/dL (NEGATIVE); KETONE, URINE MANUAL NEGATIVE (NEGATIVE); PH,URINE MAN 5.5 UNITS (5.0 - 7.0); PROTEIN, URINE MANUAL NEGATIVE (NEGATIVE); UROBILINOGEN, URINE MANUAL NORMAL (NORMAL)
[2022-08-17 11:03] LABS: BLOOD URINE MANUAL POSITIVE (NEGATIVE); LEUKOCYTE ESTERASE, URINE MAN TRACE (NEGATIVE); NITRITE, URINE MANUAL NEGATIVE (NEGATIVE)
[2022-08-17 11:19] LABS: BACTERIA, URINE SMALL AMOUNT; HYALINE CAST, URINE NONE SEEN /lpf (0-1); MUCUS, URINE SMALL AMOUNT (NEGATIVE); RBC, URINE 40-50 /hpf (0-3); SQUAMOUS EPITHELIAL CELL URINE SMALL AMOUNT /hpf (SMALL AMT)
== END ==
LOC: M PLALAB 09:00
PROVIDERS: ATTEND Urology
DX: C67.9 Malignant neoplasm of bladder, unspecified (principal)

== ENCOUNTER → 2022-09-13 | Outpatient (REF) | payer BC ==
[2022-09-13 14:38] LABS: APPEARANCE, URINE MANUAL CLEAR (CLEAR); BILIRUBIN, URINE MANUAL NEGATIVE (NEGATIVE); BLOOD URINE MANUAL NEGATIVE (NEGATIVE); COLOR, URINE MANUAL YELLOW (YELLOW); GLUCOSE, URINE (UA) MANUAL 4+(1000 MG/DL) mg/dL (NEGATIVE); KETONE, URINE MANUAL NEGATIVE (NEGATIVE); LEUKOCYTE ESTERASE, URINE MAN NEGATIVE (NEGATIVE); NITRITE, URINE MANUAL NEGATIVE (NEGATIVE); PROTEIN, URINE MANUAL NEGATIVE (NEGATIVE); UROBILINOGEN, URINE MANUAL NORMAL (NORMAL)
== END ==
LOC: M SMT 13:00
PROVIDERS: ATTEND Urology
DX: N39.0 Urinary tract infection, site not specified (principal)

== ENCOUNTER → 2022-09-20 | Outpatient (REF) | payer BC ==
[2022-09-20 14:01] LABS: APPEARANCE, URINE CLEAR (CLEAR); BACTERIA, URINE AUTO NEGATIVE (NEGATIVE); BILIRUBIN, URINE AUTO NEGATIVE (NEGATIVE); BLOOD, URINE BLOOD NEGATIVE (NEGATIVE); COLOR, URINE YELLOW (YELLOW); GLUCOSE, URINE (UA) AUTO 3+ mg/dL (NEGATIVE); KETONE, URINE AUTO NEGATIVE (NEGATIVE); LEUKOCYTE ESTERASE, URINE AUTO NEGATIVE (NEGATIVE); MUCUS, URINE SMALL (NEGATIVE); NITRITE, URINE AUTO NEGATIVE (NEGATIVE); PROTEIN, URINE AUTO NEGATIVE (NEGATIVE); RBC, URINE AUTO 0 /HPF (0-3); SQUAMOUS EPITHELIAL CELL UR AU 0 /HPF (0-6); UROBILINOGEN, URINE AUTO 0.2 mg/dL (0.0-2.0); WBC, URINE AUTO 0 /HPF (0-3)
== END ==
LOC: M SMT 12:53
PROVIDERS: ATTEND Urology
DX: C67.9 Malignant neoplasm of bladder, unspecified (principal)

== ENCOUNTER → 2022-09-27 | Outpatient (REF) | payer BC ==
[2022-09-27 13:37] LABS: APPEARANCE, URINE CLEAR (CLEAR); BACTERIA, URINE AUTO NEGATIVE (NEGATIVE); BILIRUBIN, URINE AUTO NEGATIVE (NEGATIVE); BLOOD, URINE BLOOD NEGATIVE (NEGATIVE); COLOR, URINE YELLOW (YELLOW); GLUCOSE, URINE (UA) AUTO 3+ mg/dL (NEGATIVE); KETONE, URINE AUTO NEGATIVE (NEGATIVE); LEUKOCYTE ESTERASE, URINE AUTO NEGATIVE (NEGATIVE); MUCUS, URINE SMALL (NEGATIVE); NITRITE, URINE AUTO NEGATIVE (NEGATIVE); PROTEIN, URINE AUTO NEGATIVE (NEGATIVE); RBC, URINE AUTO 1 /HPF (0-3); SQUAMOUS EPITHELIAL CELL UR AU 0 /HPF (0-6); UROBILINOGEN, URINE AUTO 0.2 mg/dL (0.0-2.0); WBC, URINE AUTO 2 /HPF (0-3)
== END ==
LOC: M SMT 12:50
PROVIDERS: ATTEND Urology
DX: N39.0 Urinary tract infection, site not specified (principal)

== ENCOUNTER → 2022-10-04 | Outpatient (REF) | payer BC ==
[2022-10-04 13:43] LABS: APPEARANCE, URINE CLEAR (CLEAR); BACTERIA, URINE AUTO NEGATIVE (NEGATIVE); BILIRUBIN, URINE AUTO NEGATIVE (NEGATIVE); BLOOD, URINE BLOOD NEGATIVE (NEGATIVE); COLOR, URINE YELLOW (YELLOW); GLUCOSE, URINE (UA) AUTO 3+ mg/dL (NEGATIVE); KETONE, URINE AUTO NEGATIVE (NEGATIVE); LEUKOCYTE ESTERASE, URINE AUTO NEGATIVE (NEGATIVE); MUCUS, URINE SMALL (NEGATIVE); NITRITE, URINE AUTO NEGATIVE (NEGATIVE); PROTEIN, URINE AUTO NEGATIVE (NEGATIVE); RBC, URINE AUTO 1 /HPF (0-3); SPECIFIC GRAVITY URINE AUTO 1.013 (1.002-1.035); SQUAMOUS EPITHELIAL CELL UR AU 0 /HPF (0-6); UROBILINOGEN, URINE AUTO 0.2 mg/dL (0.0-2.0); WBC, URINE AUTO 1 /HPF (0-3)
== END ==
LOC: M SMT 13:13
PROVIDERS: ATTEND Urology
DX: N39.0 Urinary tract infection, site not specified (principal)

== ENCOUNTER → 2022-10-12 | Outpatient (REF) | payer BC ==
[2022-10-12 13:25] LABS: APPEARANCE, URINE CLEAR (CLEAR); BACTERIA, URINE AUTO NEGATIVE (NEGATIVE); BILIRUBIN, URINE AUTO NEGATIVE (NEGATIVE); BLOOD, URINE BLOOD NEGATIVE (NEGATIVE); COLOR, URINE YELLOW (YELLOW); GLUCOSE, URINE (UA) AUTO 3+ mg/dL (NEGATIVE); KETONE, URINE AUTO NEGATIVE (NEGATIVE); LEUKOCYTE ESTERASE, URINE AUTO NEGATIVE (NEGATIVE); MUCUS, URINE SMALL (NEGATIVE); NITRITE, URINE AUTO NEGATIVE (NEGATIVE); PROTEIN, URINE AUTO NEGATIVE (NEGATIVE); RBC, URINE AUTO 0 /HPF (0-3); SPECIFIC GRAVITY URINE AUTO 1.014 (1.002-1.035); SQUAMOUS EPITHELIAL CELL UR AU 0 /HPF (0-6); UROBILINOGEN, URINE AUTO 0.2 mg/dL (0.0-2.0); WBC, URINE AUTO 0 /HPF (0-3)
== END ==
LOC: M SMT 12:56
PROVIDERS: ATTEND Urology
DX: N39.0 Urinary tract infection, site not specified (principal)

== ENCOUNTER → 2022-10-18 | Outpatient (REF) | payer BC ==
[2022-10-18 15:10] LABS: APPEARANCE, URINE CLEAR (CLEAR); BACTERIA, URINE AUTO NEGATIVE (NEGATIVE); BILIRUBIN, URINE AUTO NEGATIVE (NEGATIVE); BLOOD, URINE BLOOD NEGATIVE (NEGATIVE); COLOR, URINE YELLOW (YELLOW); GLUCOSE, URINE (UA) AUTO 3+ mg/dL (NEGATIVE); KETONE, URINE AUTO NEGATIVE (NEGATIVE); LEUKOCYTE ESTERASE, URINE AUTO NEGATIVE (NEGATIVE); MUCUS, URINE SMALL (NEGATIVE); NITRITE, URINE AUTO NEGATIVE (NEGATIVE); PROTEIN, URINE AUTO NEGATIVE (NEGATIVE); RBC, URINE AUTO 0 /HPF (0-3); SPECIFIC GRAVITY URINE AUTO 1.012 (1.002-1.035); SQUAMOUS EPITHELIAL CELL UR AU 0 /HPF (0-6); UROBILINOGEN, URINE AUTO 0.2 mg/dL (0.0-2.0); WBC, URINE AUTO 1 /HPF (0-3)
== END ==
LOC: M SMT 13:09
PROVIDERS: ATTEND Urology
DX: C67.9 Malignant neoplasm of bladder, unspecified (principal)

== ENCOUNTER → 2022-11-26 | Outpatient (REF) | payer BC | LOC: M SMT 16:45 | PROVIDERS: ATTEND Urology | DX: C67.9 Malignant neoplasm of bladder, unspecified (principal) ==

== ENCOUNTER → 2022-12-22 | Outpatient (CLI) | payer MEDICARE, BC ==
[2022-12-22 13:20] LABS: HEMATOCRIT 44.3 % (42.0-52.0); HEMOGLOBIN 14.6 g/dl (13.5-17.5); MEAN CORPUSCULAR HEMOGLOBIN 29.7 pg (27.0-33.0); PLATELET COUNT, AUTOMATED 216 10^3/uL (150-450); RED BLOOD COUNT 4.92 10^6/uL (4.30-6.10); WHITE BLOOD COUNT 6.6 10^3/uL (4.0-10.0)
[2022-12-22 13:28] LABS: ALBUMIN 3.7 G/DL (3.2-5.2); ALKALINE PHOSPHATASE 105 U/L (46-116); ALT/SGPT 33 U/L (7.0-40); AST/SGOT 31 U/L (<34); BILIRUBIN,TOTAL 0.6 MG/DL (0.3-1.2); BLOOD UREA NITROGEN 20 MG/DL (9-23); CALCIUM LEVEL 8.6 MG/DL (8.3-10.6); CARBON DIOXIDE LEVEL 28 MMOL/L (20-31); CHLORIDE LEVEL 100 MMOL/L (98-107); CREATININE FOR GFR 0.71 MG/DL (0.70-1.30); GLOMERULAR FILTRATION RATE > 60.0 (>49); GLUCOSE, FASTING 322 MG/DL (74-106); POTASSIUM SERUM 4.8 MMOL/L (3.5-5.1); SODIUM LEVEL 137 MMOL/L (136-145); TOTAL PROTEIN 6.6 G/DL (5.7-8.2)
[2022-12-22 13:52] LABS: APPEARANCE, URINE CLEAR (CLEAR); BACTERIA, URINE AUTO NEGATIVE (NEGATIVE); BILIRUBIN, URINE AUTO NEGATIVE (NEGATIVE); BLOOD, URINE BLOOD NEGATIVE (NEGATIVE); COLOR, URINE YELLOW (YELLOW); GLUCOSE, URINE (UA) AUTO 3+ mg/dL (NEGATIVE); KETONE, URINE AUTO TRACE mg/dL (NEGATIVE); LEUKOCYTE ESTERASE, URINE AUTO NEGATIVE (NEGATIVE); NITRITE, URINE AUTO NEGATIVE (NEGATIVE); PROTEIN, URINE AUTO NEGATIVE (NEGATIVE); RBC, URINE AUTO 1 /HPF (0-3); SPECIFIC GRAVITY URINE AUTO 1.026 (1.002-1.035); SQUAMOUS EPITHELIAL CELL UR AU 0 /HPF (0-6); UROBILINOGEN, URINE AUTO 0.2 mg/dL (0.0-2.0); WBC, URINE AUTO 0 /HPF (0-3)
== END ==
LOC: M PLALAB 10:08
PROVIDERS: ATTEND Urology
DX: C67.9 Malignant neoplasm of bladder, unspecified (principal)

== ENCOUNTER → 2023-01-04 | Outpatient (REF) | payer MEDICARE, BC ==
[2023-01-04 18:44] LABS: APPEARANCE, URINE CLEAR (CLEAR); BACTERIA, URINE AUTO NEGATIVE (NEGATIVE); BILIRUBIN, URINE AUTO NEGATIVE (NEGATIVE); BLOOD, URINE BLOOD 2+ (NEGATIVE); COLOR, URINE YELLOW (YELLOW); GLUCOSE, URINE (UA) AUTO 2+ mg/dL (NEGATIVE); KETONE, URINE AUTO NEGATIVE (NEGATIVE); LEUKOCYTE ESTERASE, URINE AUTO NEGATIVE (NEGATIVE); MUCUS, URINE SMALL (NEGATIVE); NITRITE, URINE AUTO NEGATIVE (NEGATIVE); PROTEIN, URINE AUTO NEGATIVE (NEGATIVE); RBC, URINE AUTO 9 /HPF (0-3); SPECIFIC GRAVITY URINE AUTO 1.021 (1.002-1.035); SQUAMOUS EPITHELIAL CELL UR AU 0 /HPF (0-6); UROBILINOGEN, URINE AUTO 0.2 mg/dL (0.0-2.0); WBC, URINE AUTO 5 /HPF (0-3)
== END ==
LOC: M SMT 17:34
PROVIDERS: ATTEND Urology
DX: C67.9 Malignant neoplasm of bladder, unspecified (principal)

== ENCOUNTER → 2023-01-12 | Outpatient (REF) | payer MEDICARE, BC ==
[2023-01-12 17:05] LABS: APPEARANCE, URINE CLEAR (CLEAR); BACTERIA, URINE AUTO NEGATIVE (NEGATIVE); BILIRUBIN, URINE AUTO NEGATIVE (NEGATIVE); BLOOD, URINE BLOOD NEGATIVE (NEGATIVE); COLOR, URINE YELLOW (YELLOW); GLUCOSE, URINE (UA) AUTO 3+ mg/dL (NEGATIVE); KETONE, URINE AUTO NEGATIVE (NEGATIVE); LEUKOCYTE ESTERASE, URINE AUTO NEGATIVE (NEGATIVE); NITRITE, URINE AUTO NEGATIVE (NEGATIVE); PROTEIN, URINE AUTO NEGATIVE (NEGATIVE); RBC, URINE AUTO 1 /HPF (0-3); SPECIFIC GRAVITY URINE AUTO 1.018 (1.002-1.035); SQUAMOUS EPITHELIAL CELL UR AU 0 /HPF (0-6); UROBILINOGEN, URINE AUTO 0.2 mg/dL (0.0-2.0); WBC, URINE AUTO 3 /HPF (0-3)
== END ==
LOC: M SMT 15:17
PROVIDERS: ATTEND Urology
DX: C67.9 Malignant neoplasm of bladder, unspecified (principal)

== ENCOUNTER → 2023-02-07 | Outpatient (REF) | payer BC, MEDICARE ==
[~2023-02-07] MED LIST changes: -ROSU20TA5 PO; +ROSU20TA61 PO
== END ==
LOC: M SMT 17:26
PROVIDERS: ATTEND Urology
DX: C67.9 Malignant neoplasm of bladder, unspecified (principal)

== ENCOUNTER → 2023-03-03 | Outpatient (CLI) | payer MEDICARE ==
[2023-03-03 16:01] LABS: HEMATOCRIT 42.1 % (42.0-52.0); HEMOGLOBIN 14.1 g/dl (13.5-17.5); MEAN CORPUSCULAR HEMOGLOBIN 29.6 pg (27.0-33.0); MEAN CORPUSCULAR HGB CONC 33.5 g/dl (32.0-36.5); MEAN CORPUSCULAR VOLUME 88.3 fl (80.0-96.0); PLATELET COUNT, AUTOMATED 216 10^3/uL (150-450); RED BLOOD COUNT 4.77 10^6/uL (4.30-6.10); WHITE BLOOD COUNT 7.7 10^3/uL (4.0-10.0)
[2023-03-03 16:08] LABS: APPEARANCE, URINE CLEAR (CLEAR); BACTERIA, URINE AUTO NEGATIVE (NEGATIVE); BILIRUBIN, URINE AUTO NEGATIVE (NEGATIVE); BLOOD, URINE BLOOD NEGATIVE (NEGATIVE); COLOR, URINE YELLOW (YELLOW); GLUCOSE, URINE (UA) AUTO 2+ mg/dL (NEGATIVE); KETONE, URINE AUTO NEGATIVE (NEGATIVE); LEUKOCYTE ESTERASE, URINE AUTO NEGATIVE (NEGATIVE); MUCUS, URINE SMALL (NEGATIVE); NITRITE, URINE AUTO NEGATIVE (NEGATIVE); PROTEIN, URINE AUTO NEGATIVE (NEGATIVE); RBC, URINE AUTO 0 /HPF (0-3); SQUAMOUS EPITHELIAL CELL UR AU 0 /HPF (0-6); WBC, URINE AUTO 1 /HPF (0-3)
[2023-03-03 16:45] LABS: ALKALINE PHOSPHATASE 85 U/L (46-116); ALT/SGPT 30 U/L (7.0-40); AST/SGOT 28 U/L (<34); BILIRUBIN,TOTAL 0.5 MG/DL (0.3-1.2); BLOOD UREA NITROGEN 13 MG/DL (9-23); CALCIUM LEVEL 8.9 MG/DL (8.3-10.6); CARBON DIOXIDE LEVEL 30 MMOL/L (20-31); CHLORIDE LEVEL 100 MMOL/L (98-107); CREATININE FOR GFR 0.79 MG/DL (0.70-1.30); GLOMERULAR FILTRATION RATE > 60.0 (>49); GLUCOSE, FASTING 185 MG/DL (74-106); POTASSIUM SERUM 4.4 MMOL/L (3.5-5.1); SODIUM LEVEL 136 MMOL/L (136-145); TOTAL PROTEIN 6.6 G/DL (5.7-8.2)
== END ==
LOC: M PLALAB 14:05
PROVIDERS: ATTEND Urology
DX: C67.9 Malignant neoplasm of bladder, unspecified (principal)

== ENCOUNTER → 2023-03-14 | Outpatient (REF) | payer MEDICARE ==
[2023-03-14 18:53] LABS: APPEARANCE, URINE CLEAR (CLEAR); BACTERIA, URINE AUTO NEGATIVE (NEGATIVE); BILIRUBIN, URINE AUTO NEGATIVE (NEGATIVE); BLOOD, URINE BLOOD NEGATIVE (NEGATIVE); COLOR, URINE YELLOW (YELLOW); GLUCOSE, URINE (UA) AUTO 3+ mg/dL (NEGATIVE); KETONE, URINE AUTO NEGATIVE (NEGATIVE); LEUKOCYTE ESTERASE, URINE AUTO NEGATIVE (NEGATIVE); MUCUS, URINE SMALL (NEGATIVE); NITRITE, URINE AUTO NEGATIVE (NEGATIVE); PROTEIN, URINE AUTO NEGATIVE (NEGATIVE); RBC, URINE AUTO 1 /HPF (0-3); SPECIFIC GRAVITY URINE AUTO 1.026 (1.002-1.035); SQUAMOUS EPITHELIAL CELL UR AU 0 /HPF (0-6); UROBILINOGEN, URINE AUTO 0.2 mg/dL (0.0-2.0); WBC, URINE AUTO 1 /HPF (0-3)
== END ==
LOC: M SMT 17:12
PROVIDERS: ATTEND Urology
DX: C67.9 Malignant neoplasm of bladder, unspecified (principal)

== ENCOUNTER → 2023-03-21 | Outpatient (REF) | payer MEDICARE ==
[2023-03-21 14:14] LABS: APPEARANCE, URINE CLEAR (CLEAR); BACTERIA, URINE AUTO NEGATIVE (NEGATIVE); BILIRUBIN, URINE AUTO NEGATIVE (NEGATIVE); BLOOD, URINE BLOOD NEGATIVE (NEGATIVE); COLOR, URINE YELLOW (YELLOW); GLUCOSE, URINE (UA) AUTO 3+ mg/dL (NEGATIVE); KETONE, URINE AUTO NEGATIVE (NEGATIVE); LEUKOCYTE ESTERASE, URINE AUTO NEGATIVE (NEGATIVE); NITRITE, URINE AUTO NEGATIVE (NEGATIVE); PROTEIN, URINE AUTO NEGATIVE (NEGATIVE); RBC, URINE AUTO 0 /HPF (0-3); SPECIFIC GRAVITY URINE AUTO 1.026 (1.002-1.035); SQUAMOUS EPITHELIAL CELL UR AU 0 /HPF (0-6); UROBILINOGEN, URINE AUTO 0.2 mg/dL (0.0-2.0); WBC, URINE AUTO 4 /HPF (0-3)
== END ==
LOC: M SMT 13:23
PROVIDERS: ATTEND Urology
DX: C67.9 Malignant neoplasm of bladder, unspecified (principal); Z79.899 Other long term (current) drug therapy

== ENCOUNTER → 2023-03-28 | Outpatient (REF) | payer MEDICARE ==
[2023-03-28 13:59] LABS: APPEARANCE, URINE CLEAR (CLEAR); BACTERIA, URINE AUTO NEGATIVE (NEGATIVE); BILIRUBIN, URINE AUTO NEGATIVE (NEGATIVE); BLOOD, URINE BLOOD NEGATIVE (NEGATIVE); COLOR, URINE YELLOW (YELLOW); GLUCOSE, URINE (UA) AUTO 3+ mg/dL (NEGATIVE); KETONE, URINE AUTO NEGATIVE (NEGATIVE); LEUKOCYTE ESTERASE, URINE AUTO NEGATIVE (NEGATIVE); NITRITE, URINE AUTO NEGATIVE (NEGATIVE); PROTEIN, URINE AUTO NEGATIVE (NEGATIVE); RBC, URINE AUTO 1 /HPF (0-3); SPECIFIC GRAVITY URINE AUTO 1.026 (1.002-1.035); SQUAMOUS EPITHELIAL CELL UR AU 0 /HPF (0-6); UROBILINOGEN, URINE AUTO 0.2 mg/dL (0.0-2.0); WBC, URINE AUTO 6 /HPF (0-3)
== END ==
LOC: M SMT 13:12
PROVIDERS: ATTEND Urology
DX: C67.9 Malignant neoplasm of bladder, unspecified (principal); Z79.899 Other long term (current) drug therapy

== ENCOUNTER → 2023-05-13 | Outpatient (REF) | payer MEDICARE ==
[~2023-05-13] MED LIST changes: -OXYB5TAB10 PO; +OXYB5TAB11 PO
== END ==
LOC: M SMT 15:36
PROVIDERS: ATTEND Urology
DX: C67.9 Malignant neoplasm of bladder, unspecified (principal)

== ENCOUNTER → 2023-05-31 | Outpatient (REF) | payer MEDICARE | LOC: M SMT PRO 12:29 | PROVIDERS: ATTEND Urology | DX: N40.2 Nodular prostate without lower urinary tract symptoms (principal); R97.20 Elevated prostate specific antigen [PSA]; Z79.84 Long term (current) use of oral hypoglycemic drugs; Z79.85 Long-term (current) use of injectable non-insulin antidiabetic drugs; Z79.82 Long term (current) use of aspirin; Z79.4 Long term (current) use of insulin; Z79.899 Other long term (current) drug therapy; Z80.7 Family history of other malignant neoplasms of lymphoid, hematopoietic and related tissues; Z87.891 Personal history of nicotine dependence; Z91.048 Other nonmedicinal substance allergy status ==

== ENCOUNTER → 2023-08-08 | Outpatient (REF) | payer MEDICARE | LOC: M SMT 13:18 | PROVIDERS: ATTEND Urology | DX: C67.9 Malignant neoplasm of bladder, unspecified (principal) ==

== ENCOUNTER → 2023-11-28 | Outpatient (REF) | payer MEDICARE ==
[~2023-11-28] MED LIST changes: -OXYB5TAB11 PO; +OXYB5TAB14 PO; -RAMI1CAP24 PO; +RAMI5CAP60 PO
== END ==
LOC: M SMT 12:55
PROVIDERS: ATTEND Urology
DX: C67.9 Malignant neoplasm of bladder, unspecified (principal)

== ENCOUNTER → 2024-02-27 | Outpatient (REF) | payer MEDICARE | LOC: M SMT 10:25 | PROVIDERS: ATTEND Urology | DX: C67.9 Malignant neoplasm of bladder, unspecified (principal) ==

== ENCOUNTER → 2024-03-05 | Outpatient (CLI) | payer MEDICARE ==
[2024-03-05 18:23] LABS: BASO % 0.5 % (0.0-1.0); EOS # 0.1 10^3/uL (0.0-0.5); EOS % 1.7 % (0.0-3.0); HEMATOCRIT 43.8 % (42.0-52.0); HEMOGLOBIN 14.6 g/dl (13.5-17.5); LYMPH # 2.5 10^3/uL (1.5-5.0); LYMPH % 37.2 % (24.0-44.0); MEAN CORPUSCULAR HEMOGLOBIN 31.5 pg (27.0-33.0); MEAN CORPUSCULAR HGB CONC 33.3 g/dl (32.0-36.5); MEAN CORPUSCULAR VOLUME 94.4 fl (80.0-96.0); MONO # 0.5 10^3/uL (0.0-0.8); MONO % 7.8 % (2.0-8.0); NEUTROPHILS # 3.5 10^3/uL (1.5-8.5); NEUTROPHILS % 52.3 % (36.0-66.0); PLATELET COUNT, AUTOMATED 225 10^3/uL (150-450); RED BLOOD COUNT 4.64 10^6/uL (4.30-6.10); WHITE BLOOD COUNT 6.7 10^3/uL (4.0-10.0)
[2024-03-05 18:48] LABS: HEMOGLOBIN A1c 8.2 % (4.0-6.0)
[2024-03-05 18:56] LABS: ALBUMIN 3.9 G/DL (3.2-5.2); ALKALINE PHOSPHATASE 77 U/L (46-116); ALT/SGPT 17 U/L (7.0-40); AST/SGOT 17 U/L (<34); BILIRUBIN,TOTAL 0.5 MG/DL (0.3-1.2); BLOOD UREA NITROGEN 12 MG/DL (9-23); CALCIUM LEVEL 8.6 MG/DL (8.3-10.6); CARBON DIOXIDE LEVEL 27 MMOL/L (20-31); CHLORIDE LEVEL 106 MMOL/L (98-107); CHOLESTEROL LEVEL 106 MG/DL (<200); CHOLESTEROL RISK RATIO 3.21 (<5); CREATININE FOR GFR 0.73 MG/DL (0.70-1.30); GLOMERULAR FILTRATION RATE > 60.0 (>42); GLUCOSE, FASTING 130 MG/DL (74-106); LDL CHOLESTEROL 53.4 MG/DL (<100); POTASSIUM SERUM 4.6 MMOL/L (3.5-5.1); SODIUM LEVEL 139 MMOL/L (136-145); TOTAL PROTEIN 6.7 G/DL (5.7-8.2); TRIGLYCERIDES LEVEL 98 MG/DL (<150)
== END ==
LOC: M PLALAB 16:03
PROVIDERS: ATTEND Internal Medicine Interventional Cardiology
DX: E78.5 Hyperlipidemia, unspecified (principal); E11.65 Type 2 diabetes mellitus with hyperglycemia; I25.10 Atherosclerotic heart disease of native coronary artery without angina pectoris

== ENCOUNTER → 2024-04-30 | Outpatient (CLI) | payer MEDICARE ==
[2024-04-30 11:16] LABS: BASO # 0.1 10^3/uL (0.0-0.2); BASO % 0.7 % (0.0-1.0); EOS # 0.2 10^3/uL (0.0-0.5); HEMATOCRIT 45.8 % (42.0-52.0); HEMOGLOBIN 15.5 g/dl (13.5-17.5); LYMPH # 2.7 10^3/uL (1.5-5.0); LYMPH % 36.1 % (24.0-44.0); MEAN CORPUSCULAR HEMOGLOBIN 31.8 pg (27.0-33.0); MEAN CORPUSCULAR HGB CONC 33.8 g/dl (32.0-36.5); MEAN CORPUSCULAR VOLUME 93.9 fl (80.0-96.0); MONO # 0.6 10^3/uL (0.0-0.8); NEUTROPHILS # 3.9 10^3/uL (1.5-8.5); NEUTROPHILS % 52.7 % (36.0-66.0); PLATELET COUNT, AUTOMATED 225 10^3/uL (150-450); RED BLOOD COUNT 4.88 10^6/uL (4.30-6.10); WHITE BLOOD COUNT 7.5 10^3/uL (4.0-10.0)
[2024-04-30 11:30] LABS: HEMOGLOBIN A1c 8.3 % (4.0-6.0)
== END ==
LOC: M PLALAB 08:28
PROVIDERS: ATTEND Family Medicine
DX: E11.65 Type 2 diabetes mellitus with hyperglycemia (principal)

== ENCOUNTER → 2024-05-28 | Outpatient (CLI) | payer MEDICARE ==
[~2024-05-28] MED LIST changes: -ROSU20TA61 PO; +ROSU20TA86 PO
== END ==
LOC: M LAB 11:40
PROVIDERS: ATTEND Urology
DX: C67.9 Malignant neoplasm of bladder, unspecified (principal); Z12.5 Encounter for screening for malignant neoplasm of prostate
CPT/HCPCS: 36415; 88108; G0103

== ENCOUNTER → 2024-12-07 | Outpatient (CLI) | payer MEDICARE ==
[~2024-12-07] MED LIST changes: -NYST-13 TOP; +NYST0.1C TOP
[2024-12-07 11:40] LABS: BASO # 0.1 10^3/uL (0.0-0.2); BASO % 0.7 % (0.0-1.0); EOS # 0.1 10^3/uL (0.0-0.5); EOS % 1.9 % (0.0-3.0); HEMATOCRIT 46.7 % (42.0-52.0); HEMOGLOBIN 15.5 g/dl (13.5-17.5); LYMPH # 2.5 10^3/uL (1.5-5.0); LYMPH % 36.4 % (24.0-44.0); MEAN CORPUSCULAR HEMOGLOBIN 31.6 pg (27.0-33.0); MEAN CORPUSCULAR HGB CONC 33.2 g/dl (32.0-36.5); MEAN CORPUSCULAR VOLUME 95.1 fl (80.0-96.0); MONO # 0.6 10^3/uL (0.0-0.8); MONO % 8.3 % (2.0-8.0); NEUTROPHILS # 3.6 10^3/uL (1.5-8.5); NEUTROPHILS % 52.1 % (36.0-66.0); PLATELET COUNT, AUTOMATED 213 10^3/uL (150-450); RED BLOOD COUNT 4.91 10^6/uL (4.30-6.10)
[2024-12-07 11:58] LABS: HEMOGLOBIN A1c 7.7 % (4.0-6.0)
[2024-12-07 12:08] LABS: ALKALINE PHOSPHATASE 104 U/L (40-129); ALT/SGPT 28 U/L (7.0-40); AST/SGOT 24 U/L (<34); BILIRUBIN,TOTAL 0.6 MG/DL (0.3-1.2); BLOOD UREA NITROGEN 17 MG/DL (9-23); CALCIUM LEVEL 9.3 MG/DL (8.3-10.6); CARBON DIOXIDE LEVEL 29 MMOL/L (20-31); CHLORIDE LEVEL 102 MMOL/L (98-107); CHOLESTEROL LEVEL 112 MG/DL (<200); CHOLESTEROL RISK RATIO 3.09 (<5); CREATININE FOR GFR 0.77 MG/DL (0.70-1.30); FREE T4 1.26 NG/DL (0.89-1.76); GLOMERULAR FILTRATION RATE > 90.0 (>42); GLUCOSE, FASTING 219 MG/DL (74-106); HDL CHOLESTEROL 36.2 MG/DL (>40); LDL CHOLESTEROL 23.2 MG/DL (<100); NON-HDL-C 75.8 MG/DL; POTASSIUM SERUM 4.8 MMOL/L (3.5-5.1); SODIUM LEVEL 139 MMOL/L (136-145); THYROID STIMULATING HORMONE 1.652 uIU/ML (0.55-4.78); TOTAL PROTEIN 6.9 G/DL (5.7-8.2); TRIGLYCERIDES LEVEL 263 MG/DL (<150)
== END ==
LOC: M PLALAB 07:50
PROVIDERS: ATTEND Internal Medicine Interventional Cardiology
DX: I25.10 Atherosclerotic heart disease of native coronary artery without angina pectoris (principal); E11.65 Type 2 diabetes mellitus with hyperglycemia; E78.5 Hyperlipidemia, unspecified; I25.84 Coronary atherosclerosis due to calcified coronary lesion

== ENCOUNTER → 2024-12-10 | Outpatient (REF) | payer MEDICARE | LOC: M SMT 12:43 | PROVIDERS: ATTEND Urology | DX: C67.9 Malignant neoplasm of bladder, unspecified (principal) ==

== ENCOUNTER → 2025-03-05 | Outpatient (CLI) | payer MEDICARE ==
[2025-03-05 10:57] LABS: BASO # 0.1 10^3/uL (0.0-0.2); BASO % 0.7 % (0.0-1.0); EOS # 0.1 10^3/uL (0.0-0.5); EOS % 1.6 % (0.0-3.0); LYMPH # 2.6 10^3/uL (1.5-5.0); LYMPH % 33.9 % (24.0-44.0); MONO # 0.5 10^3/uL (0.0-0.8); MONO % 6.9 % (2.0-8.0); NEUTROPHILS # 4.3 10^3/uL (1.5-8.5); NEUTROPHILS % 55.9 % (36.0-66.0); PLATELET COUNT, AUTOMATED 261 10^3/uL (150-450)
[2025-03-05 11:29] LABS: ALT/SGPT 21 U/L (7.0-40); AST/SGOT 28 U/L (<34); CALCIUM LEVEL 9.0 MG/DL (8.3-10.6); CARBON DIOXIDE LEVEL 28 MMOL/L (20-31); CHLORIDE LEVEL 102 MMOL/L (98-107); CREATININE FOR GFR 0.79 MG/DL (0.70-1.30); GLOMERULAR FILTRATION RATE > 90.0 (>42); POTASSIUM SERUM 5.3 MMOL/L (3.5-5.1); SODIUM LEVEL 141 MMOL/L (136-145)
== END ==
LOC: M PLALAB 09:06
PROVIDERS: ATTEND Nurse Practitioner
DX: I35.1 Nonrheumatic aortic (valve) insufficiency (principal)

== ENCOUNTER → 2025-03-13 | Outpatient (REF) | payer MEDICARE ==
[2025-03-13 19:05] LABS: CALCIUM LEVEL 9.6 MG/DL (8.3-10.6); CARBON DIOXIDE LEVEL 30 MMOL/L (20-31); CHLORIDE LEVEL 103 MMOL/L (98-107); CREATININE FOR GFR 0.84 MG/DL (0.70-1.30); GLOMERULAR FILTRATION RATE > 90.0 (>42); POTASSIUM SERUM 4.5 MMOL/L (3.5-5.1); SODIUM LEVEL 142 MMOL/L (136-145)
== END ==
LOC: M LABDRWAD 17:34
PROVIDERS: ATTEND Nurse Practitioner
DX: E87.5 Hyperkalemia (principal); I25.10 Atherosclerotic heart disease of native coronary artery without angina pectoris; Z79.02 Long term (current) use of antithrombotics/antiplatelets

== ENCOUNTER → 2025-04-12 | Outpatient (REF) | payer MEDICARE | LOC: M SMT 17:21 | PROVIDERS: ATTEND Urology | DX: C67.9 Malignant neoplasm of bladder, unspecified (principal) ==